=== PATIENT | female | born 1990 | race Caucasian/White ===

== ENCOUNTER 2016-04-03 06:54 | Inpatient (IN) | payer BC ==
[~2016-04-03] VITALS: Ht 165.1 cm; Wt 85.5 kg
[2016-04-03] VITALS (51 sets, daily range): BP systolic 100–155; BP diastolic 54–91; PULSE 68–146; TEMP 97.5–98.3
[2016-04-03] MEDS ORDERED: PRENATAL (07:52)
[2016-04-03 07:55] LABS: BASO % 0.2 % (0.0-2.0); EOS # 0.2 (0.0-0.7); EOS % 1.8 % (0-4.0); GRAN # 5.2 (1.4-6.5); GRAN % 63.3 % (42.2-75.2); LYMPH # 2.3 (1.2-3.4); MEAN CELL VOLUME 84 fl (80.0-100.0); MEAN CORPUSCULAR HGB CONC 33 g/dl (33.0-37.0); MEAN PLATELET VOLUME 10.1 fl (7.4-10.4); MONO # 0.5 (0.1-0.6); MONO % 6.3 % (1.7-9.3); PLATELET COUNT 214 K/mm3 (130-400); RED BLOOD COUNT 3.85 M/mm3 (4.10-5.30); REDCELL DISTRIBUTION WIDTH-CV 12.8 % (11.5-14.5); WHITE BLOOD COUNT 8.3 K/mm3 (4.8-10.8)
[2016-04-03 07:58] LABS: HEMATOCRIT 32.4 % (37.0-47.0); HEMOGLOBIN 10.8 g/dl (12.5-16.0); MEAN CORPUSCULAR HEMOGLOBIN 28 pg (27.0-31.0)
[2016-04-03] MEDS ORDERED: PERCOCET 325 MG1 TA2 PO (16:41)
[2016-04-03] MEDS ORDERED: MOTRIN 800800 MG/TAB PO (16:41)
[2016-04-04 02:30] VITALS: BP 119/60; PULSE 85; TEMP 98.3
[2016-04-04 07:40] VITALS: BP 122/68; PULSE 80; TEMP 97.7
[2016-04-04 15:55] VITALS: BP 124/68; PULSE 89; TEMP 98.3
[2016-04-04 21:30] VITALS: BP 130/70; PULSE 83; TEMP 97.3
[2016-04-05 09:00] VITALS: BP 132/67; PULSE 93; TEMP 97.7
== END 2016-04-05 13:20 | disposition home or self-care (01) | DRG 775 ==
LOC: LDR 06:54 → OB 21:30
PROVIDERS: Obstetrics & Gynecology
PROC: 10E0XZZ Delivery of Products of Conception, External Approach (ICD-10-PCS; principal; 2016-04-03)
PROC: 0DQR0ZZ Repair Anal Sphincter, Open Approach (ICD-10-PCS; 2016-04-03)
PROC: 0KQM0ZZ Repair Perineum Muscle, Open Approach (ICD-10-PCS; 2016-04-03)
PROC: 3E033VJ Introduction of Other Hormone into Peripheral Vein, Percutaneous Approach (ICD-10-PCS; 2016-04-03)
DX: O36.0130 Maternal care for anti-D [Rh] antibodies, third trimester, not applicable or unspecified (principal); O70.21 Third degree perineal laceration during delivery, IIIa; Z3A.39 39 weeks gestation of pregnancy; Z37.0 Single live birth
CPT/HCPCS: J2590; J2795; J7120

== ENCOUNTER 2018-09-23 16:20 | Emergency (ER) | payer BC ==
[~2018-09-23] VITALS: Ht 165.1 cm; Wt 75.3 kg
[~2018-09-23 16:20] MED LIST: MOTRIN 800800 MG/TAB PO; PERCOCET 325 MG1 TA2 PO; PRENATAL
[2018-09-23 16:23] VITALS: TEMP 98.3
[2018-09-23 16:55] LABS: BASO % 0.2 % (0.0-2.0); EOS % 0.1 % (0-4.0); GRAN # 7.1 (1.4-6.5); GRAN % 74.8 % (42.2-75.2); HEMOGLOBIN 11.2 g/dl (12.5-16.0); LYMPH # 1.7 (1.2-3.4); LYMPH % 18.2 % (20.0-51.0); MEAN CELL VOLUME 92 fl (80.0-100.0); MEAN CORPUSCULAR HEMOGLOBIN 31 pg (27.0-31.0); MEAN CORPUSCULAR HGB CONC 33 g/dl (33.0-37.0); MEAN PLATELET VOLUME 9.6 fl (7.4-10.4); MONO # 0.6 (0.1-0.6); MONO % 6.4 % (1.7-9.3); PLATELET COUNT 207 K/mm3 (130-400); RED BLOOD COUNT 3.66 M/mm3 (4.10-5.30); REDCELL DISTRIBUTION WIDTH-CV 12.5 % (11.5-14.5)
[2018-09-23 16:58] LABS: HEMATOCRIT 33.5 % (37.0-47.0)
[2018-09-23 17:42] LABS: ALBUMIN 3.3 gm/dL (3.5-5.0); BILIRUBIN,TOTAL 0.2 mg/dL (0.0-1.0); CALCIUM 8.3 mg/dL (8.4-10.2); CREATININE, serum 0.56 (0.52-1.25); POTASSIUM 3.7 mmol/L (3.4-5.0); TOTAL PROTEIN 6.5 gm/dL (6.4-8.2)
[2018-09-23 17:52] LABS: COLLECTION METHOD CLEAN CATCH
[2018-09-23 18:00] LABS: MUCOUS Present /lpf; PH 7 (5-8); SQUAMOUS EPITHELIAL 0-2 /hpf; URINE APPEARANCE Clear; URINE BACTERIA Rare /hpf; URINE BILIRUBIN Negative (NEGATIVE); URINE BLOOD Negative (NEGATIVE); URINE COLOR Yellow; URINE GLUCOSE Negative (NEGATIVE); URINE KETONE Negative (NEGATIVE); URINE LEUKOCYTE ESTERASE Negative (NEGATIVE); URINE NITRATE Negative (NEGATIVE); URINE PROTEIN(semi-quant) Negative (NEGATIVE); URINE RBC 0-2 /hpf; URINE UROBILINOGEN Negative (NEGATIVE)
[2018-09-23 19:21] VITALS: BP 109/73; PULSE 97
== END 2018-09-23 19:22 | disposition home or self-care (01) ==
LOC: COL.ER 16:20
PROVIDERS: Family Medicine
DX: O98.512 Other viral diseases complicating pregnancy, second trimester (principal); B34.9 Viral infection, unspecified; O99.282 Endocrine, nutritional and metabolic diseases complicating pregnancy, second trimester; E86.0 Dehydration; Z79.1 Long term (current) use of non-steroidal anti-inflammatories (NSAID); Z3A.26 26 weeks gestation of pregnancy
CPT/HCPCS: J7030; J7120

== ENCOUNTER 2018-12-20 22:41 | Outpatient (CLI) | payer BC ==
[~2018-12-20] VITALS: Ht 165.1 cm; Wt 83.2 kg
[2018-12-20 23:00] VITALS: BP 116/66; PULSE 73; TEMP 97.6
[2018-12-20 23:30] VITALS: BP 127/72; PULSE 74
[2018-12-21] VITALS: BP 127/77; PULSE 79; TEMP 97.6
--- NOTE | 2018-12-21 00:30 | NUR ---
2245- Patient and ambulatory into [facility] [place]- for labor check. Patient has complaints of contractions. Patient reports a few contractions every hour since having her membranes swept today at [facility]. Patient reports having 3 contractions since 2099. Patient denies LOF, bleeding, or spotting. Patient reports an active baby. SVE 2 by this RN. Assessment completed. 2300- Contractions noted on FHT strip. Patient reports contraction pain is 5/10, but she states she is comfortable compared to her previous IOL with per past . 0000- SVE by MAYNOR Gómez. 0015- See Physician Notification. 0030- Patient ambulatory off unit with spouse. Early labor precautions explained and given. Encouraged patient to increase water intake and to call anytime with questions.
== END 2018-12-21 00:30 | disposition home or self-care (01) ==
LOC: LDRO 22:41 → LDR 23:15 → LDRO 12-21 00:30
DX: O62.9 Abnormality of forces of labor, unspecified (principal); Z3A.38 38 weeks gestation of pregnancy
CPT/HCPCS: OP

== ENCOUNTER 2018-12-23 11:02 | Inpatient (IN) | payer BC ==
[~2018-12-23] VITALS: Ht 165.1 cm; Wt 84.5 kg
[2018-12-23] VITALS (26 sets, daily range): BP systolic 107–138; BP diastolic 57–77; PULSE 68–115; TEMP 97.5–98.7
--- NOTE | 2018-12-23 11:05 | NUR ---
Pt here with c/o contractions every 4-5 minutes for the past hour. Pt was seen for weekly OB visit this AM at 0900 and was /-2. Pt to EFM, explained. 38.6 weeks gestation, G2L1. SVE:4-/-2. Assessment complete, pt states baby is active. GBS +. Contractions every 2-[address] Marks called and updated. Admit and start Pen G per protocol. IV started to right hand x 1 attempt. LR infusing with Pen G 5mu without difficulty. Consents signed. at bedside.
[2018-12-23 11:43] LABS: BASO % 0.4 % (0.0-2.0); EOS # 0.1 (0.0-0.7); EOS % 0.7 % (0-4.0); GRAN # 8.1 (1.4-6.5); GRAN % 72.3 % (42.2-75.2); HEMOGLOBIN 10.9 g/dl (12.5-16.0); LYMPH # 2.4 (1.2-3.4); LYMPH % 20.9 % (20.0-51.0); MEAN CELL VOLUME 87 fl (80.0-100.0); MEAN CORPUSCULAR HEMOGLOBIN 29 pg (27.0-31.0); MEAN CORPUSCULAR HGB CONC 33 g/dl (33.0-37.0); MEAN PLATELET VOLUME 9.7 fl (7.4-10.4); MONO # 0.6 (0.1-0.6); MONO % 5.3 % (1.7-9.3); PLATELET COUNT 248 K/mm3 (130-400); RED BLOOD COUNT 3.83 M/mm3 (4.10-5.30); REDCELL DISTRIBUTION WIDTH-CV 13.5 % (11.5-14.5)
[2018-12-23 11:45] LABS: HEMATOCRIT 33.4 % (37.0-47.0)
--- NOTE | 2018-12-23 12:15 | NUR ---
Dr. Marks to room, reviews FHR tracing, SVE with AROM, /-2 with clear fluid noted. Plan of care reviewed.
--- NOTE | 2018-12-23 12:48 | NUR ---
Patient more uncomfortable with contractions, requesting epidural, IVF bolus started, CARDIAC CARE NURSE notified.
--- NOTE | 2018-12-23 13:10 | NUR ---
1255 RAUL Choi to room to place epidural. Patient sits upright on the edge of the bed. FHR difficult to monitor in this position and EFM intermittently traces maternal HR as it coorelates with spO2 tracing. Test dose administered at 1310 by RAUL Choi. See anesthesia record for details.
[2018-12-23] MEDS ORDERED: MOTRIN 800800 MG/TAB PO (13:57)
--- NOTE | 2018-12-23 16:46 | NUR ---
1630 Dr. Marks to room, patient prepped for delivery and begins to push with contractions. 1646 Spontaneous vaginal delivery of viable male by Dr. Marks. Cord clamped and cut and to the care of the nursery RN. 1648 Spontaneous delivery of placenta by Dr. Marks. Pitocin started at 333ml/hr per orders and protocol. Fundus firm, lochia WNL. Repair of 2nd degree laceration by Dr. Marks.
[2018-12-24 02:20] VITALS: BP 120/47; PULSE 93; TEMP 98.1
[2018-12-24 08:10] VITALS: BP 116/73; PULSE 83; TEMP 97.7
--- NOTE | 2018-12-24 10:02 | NUR ---
Initial visit; Parents thanked Livestock A[employer] for offering congratulations and God's blessings for the of their son. Livestock A[employer]eer thanked family for choosing [facility].
[2018-12-24 11:53] VITALS: BP 108/55; PULSE 81; TEMP 98.9
[2018-12-24 16:01] VITALS: BP 124/70; PULSE 90; TEMP 98
[2018-12-24 21:30] VITALS: BP 115/68; PULSE 77; TEMP 98.8
[2018-12-25 07:00] VITALS: BP 129/72; PULSE 91; TEMP 97.8
--- NOTE | 2018-12-25 10:17 | NUR ---
Patient declined visit.
[2018-12-25 12:00] VITALS: BP 118/52; PULSE 62; TEMP 98
== END 2018-12-25 14:55 | disposition home or self-care (01) | DRG 807 ==
LOC: LDRO 11:02 → LDR 11:24 → OB 12-24 01:41
PROVIDERS: ADMIT Obstetrics & Gynecology
PROC: 10E0XZZ Delivery of Products of Conception, External Approach (ICD-10-PCS; principal; 2018-12-23)
PROC: 0KQM0ZZ Repair Perineum Muscle, Open Approach (ICD-10-PCS; 2018-12-23)
PROC: 10907ZC Drainage of Amniotic Fluid, Therapeutic from Products of Conception, Via Natural or Artificial Opening (ICD-10-PCS; 2018-12-23)
DX: O99.824 Streptococcus B carrier state complicating childbirth (principal); Z37.0 Single live birth; O26.893 Other specified pregnancy related conditions, third trimester; O99.62 Diseases of the digestive system complicating childbirth; Z3A.38 38 weeks gestation of pregnancy; K21.9 Gastro-esophageal reflux disease without esophagitis; O70.1 Second degree perineal laceration during delivery; Z23 Encounter for immunization; Z67.11 Type A blood, Rh negative
CPT/HCPCS: J2540; J2590; J7120